=== PATIENT | female | born 2000 | race Caucasian/White ===

== ENCOUNTER 2023-10-26 12:54 | Inpatient (IN) ==
[2023-10-27] MEDS ORDERED: [UNRECOGNIZED DRUG - OTHER] PO SCH (21:00)
[2023-10-27] MEDS ORDERED: DOXYLAMINE SUCCINATE10 PO SCH (21:00)
[2023-10-27] MEDS ORDERED: PYRIDOXINE PO SCH (21:00)
[2023-10-27] MEDS ORDERED: DOXYLAMINE PO SCH (21:00)
[2023-10-29 08:36] LABS: HDL Cholesterol 58.9 mg/dL
== END 2023-10-30 12:54 | disposition home or self-care (01) | DRG 755 ==
LOC: BSU 16:09
PROVIDERS: ADMIT Psychiatry & Neurology Psychiatry; ATTEND Psychiatry & Neurology Psychiatry